=== PATIENT | female | born 1960 | race Two or more races ===

== ENCOUNTER 2021-06-06 07:00 | Inpatient (IN) | payer OTHER ==
[~2021-06-06] VITALS: Ht 162.6 cm; Wt 73.5 kg
[2021-06-06] MEDS ORDERED: ACID CONTROLLER20 MG PO (13:03)
[2021-06-06] MEDS ORDERED: TENORMIN50 M1 PO (13:03)
[2021-06-06] MEDS ORDERED: METFORMIN HCL500 M3 PO (13:03)
[2021-06-06] MEDS ORDERED: SIMVASTATIN40 MG PO (13:04)
[2021-06-06] MEDS ORDERED: SYNTHROID125 MCG PO (13:04)
[2021-06-06] MEDS ORDERED: HYDROCHLOROTHIA25 MG PO (13:04)
[2021-06-06] MEDS ORDERED: FOLIC ACID0.8 M1 PO (13:05)
[2021-06-06] MEDS ORDERED: IRON325 MG PO (13:05)
[2021-06-06] MEDS ORDERED: HYDROCHLOROTH12.5 MG PO (13:05)
== END 2021-06-09 10:34 | disposition home or self-care (01) | DRG 741 ==
LOC: OB/GYN 15:04 → SURH 06-08 07:00 → OB/GYN 06-09 10:34
PROVIDERS: ADMIT Internal Medicine; ATTEND Internal Medicine
PROC: 0UT94ZZ Resection of Uterus, Percutaneous Endoscopic Approach (ICD-10-PCS; principal; 2021-06-06)
PROC: 07BC4ZZ Excision of Pelvis Lymphatic, Percutaneous Endoscopic Approach (ICD-10-PCS; 2021-06-06)
PROC: 0UT24ZZ Resection of Bilateral Ovaries, Percutaneous Endoscopic Approach (ICD-10-PCS; 2021-06-06)
PROC: 0UT74ZZ Resection of Bilateral Fallopian Tubes, Percutaneous Endoscopic Approach (ICD-10-PCS; 2021-06-06)
PROC: 0DNW4ZZ Release Peritoneum, Percutaneous Endoscopic Approach (ICD-10-PCS; 2021-06-06)
PROC: 30233N1 Transfusion of Nonautologous Red Blood Cells into Peripheral Vein, Percutaneous Approach (ICD-10-PCS; 2021-06-06)
DX: C54.1 Malignant neoplasm of endometrium (principal); D50.0 Iron deficiency anemia secondary to blood loss (chronic); N73.6 Female pelvic peritoneal adhesions (postinfective); E11.65 Type 2 diabetes mellitus with hyperglycemia; I10 Essential (primary) hypertension; E03.9 Hypothyroidism, unspecified